=== PATIENT | male | born 1935 | race Caucasian/White ===

== ENCOUNTER 2017-06-27 23:08 | Emergency (ER) | payer MEDICARE, OTHER ==
[2017-06-28] MEDS ORDERED: methylPREDNISolone Sodium Succinate 125 MG/2 ML SDV IM ONE (00:07)
--- NOTE | 2017-06-28 00:27 | EDM.PDOC ---
ED HPI GENERAL MEDICAL PROBLEM - General Chief Complaint: General Stated Complaint: sore throat Time Seen by Provider: 06/27/17 23:47 Source of Information: Reports: Patient History Limitations: Reports: No Limitations - History of Present Illness INITIAL COMMENTS - FREE TEXT/NARRATIVE: Two day history of sore throat, sinus congestion. Throat feels "tight" and makes patient feel that it is hard to breathe/swallow. In past he has received steroid shots for this same problem. Painful to eat/drink. No fevers. No ear pain. No cough/wheezing. Denies other pain. Denies GI changes. No one else sick at home. ROS otherwise negative. 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 Throat Pain Score (Numeric/FACES): 5 - Related Data Allergies Allergy/AdvReac Type Severity Reaction Status Date / Time No Known Allergies Allergy Verified 06/27/17 23:15 Home Meds: Home Meds Amitriptyline [Elavil] 1 tab PO BEDTIME PRN 06/27/17 [History] Ascorbate Calcium [Vitamin C] 1 tab PO DAILY 06/27/17 [History] Cholecalciferol (Vitamin D3) [Vitamin D3] 2 cap PO DAILY 06/27/17 [History] Docusate Sodium [Stool Softener] 10 cap PO DAILY 06/27/17 [History] Dorzolamide [Trusopt 2% Ophth Soln] 1 drop EYEBOTH BID 06/27/17 [History] Latanoprost [Xalatan] 1 drop EYEBOTH DAILY 06/27/17 [History] Lisinopril/Hydrochlorothiazide [Lisinopril-Hctz 10-12.5 mg Tab] 1 tab PO DAILY 06/27/17 [History] Prednisone [IJD: Prednisone] 5 mg PO DAILY 06/27/17 [History] buPROPion [Wellbutrin XL] 1 tab PO DAILY 06/27/17 [History] Past Medical History HEENT History: Reports: Glaucoma, Hard of Hearing Cardiovascular History: Reports: High Cholesterol, Hypertension Respiratory History: Reports: None Gastrointestinal History: Reports: Chronic Constipation Genitourinary History: Reports: Prostate Disorder Musculoskeletal History: Reports: Amputation, Osteoarthritis Neurological History: Reports: None Psychiatric History: Reports: Anxiety Endocrine/Metabolic History: Reports: None Hematologic History: Reports: None Immunologic History: Reports: None Oncologic (Cancer) History: Reports: Prostate Dermatologic History: Reports: None - Past Surgical History Head Surgeries/Procedures: Reports: None HEENT Surgical History: Reports: Eye Surgery GI Surgical History: Reports: Hernia, Inguinal Male Surgical History: Reports: Prostatectomy Neurological Surgical History: Reports: None Musculoskeletal Surgical History: Reports: Amputation, Other (See Below) Other Musculoskeletal Surgeries/Procedures:: Left forearm 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 ED EXAM, GENERAL - Physical Exam Exam: See Below Exam Limited By: No Limitations General Appearance: Alert, WD/WN, No Apparent Distress Eye Exam: Bilateral Eye: EOMI, PERRL Ears: Normal External Exam, Other (both ear canals blocked by wax) Nose: Normal Inspection Throat/Mouth: Normal Inspection, Normal Oropharynx, Normal Voice, No Airway Compromise, Other (No swelling noted) Head: Atraumatic, Normocephalic Neck: Normal Inspection, Supple, Non-Tender, Full Range of Motion. No: Lymphadenopathy (L), Lymphadenopathy (R) Respiratory/Chest: No Respiratory Distress, Lungs Clear, Normal Breath Sounds, No Accessory Muscle Use, Chest Non-Tender Cardiovascular: Normal Peripheral Pulses, Regular Rate, Rhythm, No Edema, No Murmur Peripheral Pulses: 0: Femoral (L) (Left distal arm amputated), 2+: Radial (R) GI/Abdominal: Soft, Non-Tender (Male) Exam: Deferred Rectal (Males) Exam: Deferred Back Exam: Normal Inspection Extremities: Normal Inspection (does have left arm/wrist amputation), Normal Range of Motion, Normal Capillary Refill Neurological: Alert, Oriented, Normal Cognition, Normal Gait, No Motor/Sensory Deficits Psychiatric: Normal Affect, Normal Mood Skin Exam: Warm, Dry, Intact, Normal Color, No Rash Course - Vital Signs Last Recorded V/S: Last Vital Signs Temp 36.6 C 06/27/17 23:09 Pulse 87 06/27/17 23:09 Resp 20 11/07/17 23:09 BP 169/81 H 06/27/17 23:09 Pulse Ox 100 06/27/17 23:09 - Orders/Labs/Meds Orders: Active Orders 24 hr Category Date Time Status STREP SCRN A RAPID W CULT CONF [RM] Stat Lab 06/27/17 23:48 Uncollected Meds: Medications Discontinued Medications Generic Name Dose Route Start Last Admin Trade Name Freq PRN Reason Stop Dose Admin Methylprednisolone Sodium Succinate 125 mg 06/28/17 00:07 06/28/17 00:15 Solu-Medrol IM 06/28/17 00:08 125 mg ONETIME ONE Administration - Re-Assessments/Exams Free Text/Narrative Re-Assessment/Exam: 06/28/17 00:32 Rapid strep negative. culture pending Solu-medrol given to help improve pharyngeal swelling. No sign of any acute distress/respiratory distress at this time. This was done for patient comfort. To go bottle of Tramadol given for patient to take 50mg PRN q6 hours. He is to follow up if there are any problems/worsening. Departure - Departure Time of Disposition: 00:26 Disposition: Home, Self-Care 01 Condition: Good Clinical Impression: Pharyngitis Qualifiers: Pharyngitis/tonsillitis etiology: unspecified etiology Qualified Code(s): J02.9 - Acute pharyngitis, unspecified Upper respiratory infection Qualifiers: URI type: unspecified viral URI Qualified Code(s): J06.9 - Acute upper respiratory infection, unspecified - Discharge Information Referrals: Deborah Vieira PA [Primary Care Provider] - Forms: ED Department Discharge Additional Instructions: Follow up as needed if this does not follow a normal viral course. - My Orders Last 24 Hours: My Active Orders 06/27/17 23:48 STREP SCRN A RAPID W CULT CONF [RM] Stat - Assessment/Plan Last 24 Hours: My Active Orders 06/27/17 23:48 STREP SCRN A RAPID W CULT CONF [RM] Stat
== END 2017-06-28 00:35 | disposition home or self-care (01) ==
LOC: LL.ED 23:08
DX: J02.9 Acute pharyngitis, unspecified (principal); I10 Essential (primary) hypertension; E78.00 Pure hypercholesterolemia, unspecified; F41.9 Anxiety disorder, unspecified; Z79.899 Other long term (current) drug therapy
CPT/HCPCS: 87081; 87430; 96372; 99283; J2930